=== PATIENT | female | born 1940 | race Caucasian/White ===

== ENCOUNTER 2017-03-03 06:49 | Day surgery (SDC) | payer OTHER ==
[2017-03-01 14:55] VITALS: BMI 29.9
--- NOTE | 2017-03-02 13:13 | HP ---
- Patient Scheduled date of Surgery: 03/03/17 Scheduled Surgical Procedure: Phacoemulsification and cataract extraction with PCIOL Affected Eye: Right Chief Complaint (Indication for surgery): Decreased vision affecting ADLs - Ocular History Other Eye History: Other (ptosis, aelksandr) Eye Medications: cipro Previous Eye Surgery: none - Medical History Illnesses: Hypertension, Hypercholesterolemia, Diabetes Current Medications: Ambulatory Orders Aspirin [Aspirin EC] 81 mg PO DAILY 03/01/17 Furosemide [Lasix] 40 mg PO DAILY 03/01/17 Losartan Potassium 50 mg PO DAILY 03/01/17 Metformin HCl 500 mg PO BID 03/01/17 Sertraline HCl [Zoloft] 100 mg PO HS 03/01/17 Allergies/Adverse Reactions: Allergies Allergy/AdvReac Type Severity Reaction Status Date / Time No Known Allergies Allergy Verified 03/01/17 14:58 Ocular Examination - Best Corrected Visual Acuity Distance: Right eye: 20/70 Distance: Left eye: 20/50 - External/Slit Lamp Examination Abnormalities: dermatochalasis, ptosis - Intraocular Pressure Intraocular Pressure - Right eye: 17 Intraocular Pressure-Left eye: 17 - Lens Lens: 2-3 + NS - Vitreous/Retina Vitreous/Retina: c:D 0.2 m/v/p wnl - Special Examination M - Right eye: -2.75-0.75 x 010 M - Left eye: -2.50-0.50 x 095 K - Right eye: 42.25/43 x 90 K - Left eye: 42.25/43 x 90 AL - Right eye: 23.80 AL - Left eye: 23.72 IOL bag: +20.5 d hoya 251 IOL sulcus: +19.5 d hoya 231 IOL AC: +17.5 d mta 4uo - Impression Impression: Cataract Right Eye - Plan Plan: Phacoemulsification and cataract extraction - IOL Right eye Post-hospital care will be provided in office on: 03/04/17
--- NOTE | 2017-03-02 13:44 | HP ---
History & Physical Update - History History: No Change - Physical Physical: No Change - Assessment Assessment: No Change - Plan Plan: No Change
[~2017-03-03 06:49] MED LIST: ACETAMINOPHEN 325 MG TABLET (FP) PO PRN
[2017-03-03 07:35] VITALS: TEMP 97.6
[2017-03-03] MEDS ORDERED: CIPROFLOXACIN 0.3% EYE DROPS 5 ML BOTTLE ONE (07:39)
[2017-03-03] MEDS ORDERED: TROPICAMIDE 1% OPHTH SOLN 15 ML BOTTLE ONE (07:39)
[2017-03-03] MEDS ORDERED: DICLOFENAC SODIUM 0.1% OPHTHALMIC 2.5ML BOTTLE ONE (07:39)
[2017-03-03] MEDS ORDERED: PHENYLEPHRINE 2.5% OPHTH SOLN 15 ML BOTTLE ONE (07:39)
[2017-03-03] MEDS: TROPICAMIDE 1% OPHTH SOLN 15 ML BOTTLE OP SCH ×2 (07:45→07:55)
[2017-03-03] MEDS: CIPROFLOXACIN HCL 0.3% OPHTH 2.5ML BOTTLE OP SCH ×2 (07:45→07:55)
[2017-03-03] MEDS: DICLOFENAC SODIUM 0.1% OPHTHALMIC 2.5ML BOTTLE OP SCH ×2 (07:45→07:55)
[2017-03-03] MEDS: PHENYLEPHRINE 2.5% OPHTH SOLN 15 ML BOTTLE OP SCH ×2 (07:45→07:55)
[2017-03-03] MEDS ORDERED: MIDAZOLAM HCL 2 MG/2 ML SINGLE DOSE VIAL ONE (08:47)
[2017-03-03] MEDS ORDERED: LIDOCAINE HCL 2% JELLY (5 ML/TUBE) TP ONE (08:53)
[2017-03-03] MEDS ORDERED: CHONDROITIN SU A/HYALUR SOD 1 KIT IO ONE (09:04)
[2017-03-03] MEDS ORDERED: BSS (NA/CA/MG/K) BALANCED SALT SOLUTION OPHTH SOLN 15 ML BOTTLE OD ONE (09:04)
[2017-03-03] MEDS ORDERED: LIDOCAINE HCL 1% PRESERVATIVE FREE - 30ML VIAL IO ONE (09:04)
[2017-03-03] MEDS ORDERED: EPINEPHrine/PF 1 MG/1 ML (1:1,000) AMPULE SQ ONE (09:07)
[2017-03-03] MEDS ORDERED: TOBRAMYCIN/DEXAMETHASONE OPHTH. OINTMENT 1 TUBE OD ONE (09:23)
--- NOTE | 2017-03-03 09:28 | OP ---
Ophthalmology Operative Note Pre-Operative Diagnosis: Cataract Affected Eye: Right Operation: Phacoemulsification and cataract extraction with PCIOL Findings: cataract right eye Post-Operative Diagnosis: Same as Pre-op Tabulating Machine Mechanic: None Anesthesiologist: Khushboo Davila Anesthesia: Topical Specimens Removed: none Estimated blood loss: none Drains & Tubes with Location: none Operative Report Dictated: Yes
[2017-03-03 10:49] VITALS: BP 150/72; PULSE 63
--- NOTE | 2017-03-05 18:21 | OP ---
DATE OF OPERATION: 03/03/2017 PREOPERATIVE DIAGNOSIS: Cataract, right eye. POSTOPERATIVE DIAGNOSIS: Cataract, right eye. PROCEDURE: Phacoemulsification and cataract extraction with insertion of posterior chamber intraocular lens, right eye. SURGEON: Eliane Garrido MD MGMT CONSULTANT: None. ANESTHESIA: Topical. ANESTHESIOLOGIST: Khushboo Davila MD OPERATIVE PROCEDURE: The patient received viscous lidocaine 1% gel and was brought to the operating room and gently sedated, prepped and draped in the usual sterile fashion so as to expose only the right eye. Ophthalmic Betadine was instilled into the inferior fornix, and the lashes were taped out of the surgical field. An eyelid speculum was placed into the right eye. A paracentesis was made in superior clear cornea at the limbus. Then, 0.5 mL of nonpreserved lidocaine 1% was injected into the eye, and viscoelastic material was instilled into the anterior chamber via the paracentesis. A 2.4-mm keratome was then used to create the main incision in temporal clear cornea at the limbus. A continuous curvilinear capsulorrhexis was performed using a cystotome and Utrata forceps. Hydrodissection of the lens cortex was performed using BSS on a cannula until the nucleus was noted to be freely rotating. The phacoemulsification tip was then inserted via the main wound and used to sculpt 2 perpendicular grooves into the lens nucleus. The nucleus was crackled into 4 quadrants. Each quadrant was lifted out of the capsule into the iris plane and individually phacoemulsified. The remaining cortical material was then aspirated using the irrigation and aspiration port. The capsular bag was inflated using Provisc, and a preloaded Hoya lens model 251, power +20.5 diopters was injected into the capsular bag and centered using a Sinskey hook. The residual viscoelastic material was removed from the anterior chamber using irrigation and aspiration. The wound edges were hydrated using BSS. The wound was tested for leakage and was found to be watertight. Therefore, TobraDex ointment was placed in the eye. The speculum was removed from the eye, and the eyelid was closed. A sterile dressing and shield were placed over the eye, and the patient was transferred to the recovery room in stable condition and told to follow up in 1 day. ELIANE GARRIDO M.D. [id number]
== END 2017-03-03 10:52 | disposition home or self-care (01) ==
LOC: JASU-SURG 06:49
PROVIDERS: ATTEND Ophthalmology
PROC: 08RJ3JZ Replacement of Right Lens with Synthetic Substitute, Percutaneous Approach (ICD-10-PCS; principal; 2017-03-03 08:30)
DX: H26.9 Unspecified cataract (principal)

== ENCOUNTER 2017-03-31 06:11 | Day surgery (SDC) | payer OTHER ==
[2017-03-29 12:00] VITALS: BMI 30.9
--- NOTE | 2017-03-30 15:39 | HP ---
- Patient Scheduled date of Surgery: 03/31/17 Scheduled Surgical Procedure: Phacoemulsification and cataract extraction with PCIOL Affected Eye: Left Chief Complaint (Indication for surgery): Decreased vision affecting ADLs - Ocular History Other Eye History: Other (aleksandr, ptosis) Eye Medications: cipro 0/4, ketorolac 0/4 Previous Eye Surgery: s/p ce/pciol OD - Medical History Illnesses: Hypertension, Hypercholesterolemia, Diabetes, Other (depression) Current Medications: Ambulatory Orders Aspirin [Aspirin EC] 81 mg PO DAILY 03/01/17 Furosemide [Lasix] 40 mg PO DAILY 03/01/17 Losartan Potassium 50 mg PO DAILY 03/01/17 Metformin HCl 500 mg PO BID 03/01/17 Sertraline HCl [Zoloft] 100 mg PO HS 03/01/17 Allergies/Adverse Reactions: Allergies Allergy/AdvReac Type Severity Reaction Status Date / Time No Known Allergies Allergy Verified 03/29/17 12:03 Ocular Examination - Best Corrected Visual Acuity Distance: Right eye: 20/25- Distance: Left eye: 20/50-2 - External/Slit Lamp Examination Abnormalities: dermatochalais - Intraocular Pressure Intraocular Pressure - Right eye: 12 Intraocular Pressure-Left eye: 17 - Lens Lens: 2-3+ ns - Vitreous/Retina Vitreous/Retina: c:d 0.2 m/v/p wnl - Special Examination M - Right eye: +0.50-1.00 x 005 M - Left eye: -2.75-0.75 x 010 K - Right eye: 42/43 x 95 K - Left eye: 42/43 x 100 AL - Right eye: 23.8 AL - Left eye: 23.72 IOL bag: +21.0 d hoya 251 IOL sulcus: +20.0 d hoya 231 IOL AC: +17.5 d mta 4uo - Impression Impression: Cataract Left Eye - Plan Plan: Phacoemulsification and cataract extraction - IOL Left eye Post-hospital care will be provided in office on: 04/01/17
--- NOTE | 2017-03-30 16:02 | HP ---
History & Physical Update - History History: No Change - Physical Physical: No Change - Assessment Assessment: No Change - Plan Plan: No Change
[~2017-03-31 06:11] MED LIST changes: +TOBRAMYCIN/DEXAMETHASONE OPHTH. OINTMENT 1 TUBE TP ONE
[2017-03-31 06:30] VITALS: TEMP 97.5
[2017-03-31] MEDS ORDERED: CIPROFLOXACIN 0.3% EYE DROPS 5 ML BOTTLE ONE (06:31)
[2017-03-31] MEDS ORDERED: DICLOFENAC SODIUM 0.1% OPHTHALMIC 2.5ML BOTTLE ONE (06:31)
[2017-03-31] MEDS: PHENYLEPHRINE 2.5% OPHTH SOLN 15 ML BOTTLE OP SCH ×3 (06:55→07:05)
[2017-03-31] MEDS: DICLOFENAC SODIUM 0.1% OPHTHALMIC 2.5ML BOTTLE OP SCH ×3 (06:55→07:05)
[2017-03-31] MEDS: TROPICAMIDE 1% OPHTH SOLN 15 ML BOTTLE OP SCH ×3 (06:55→07:05)
[2017-03-31] MEDS: CIPROFLOXACIN HCL 0.3% OPHTH 2.5ML BOTTLE OP SCH ×3 (06:55→07:05)
[2017-03-31] MEDS ORDERED: TOBRAMYCIN/DEXAMETHASONE OPHTH. OINTMENT 1 TUBE ONE (07:29)
[2017-03-31] MEDS ORDERED: EPINEPHrine/PF 1 MG/1 ML (1:1,000) AMPULE ONE (07:29)
[2017-03-31] MEDS ORDERED: TRYPAN BLUE 0.5 ML DISP.SYRIN ONE (07:29)
[2017-03-31] MEDS ORDERED: POVIDONE-IODINE 5% OPHTHALMIC PREP 30 ML SOLUTION ONE (07:29)
[2017-03-31] MEDS ORDERED: LIDOCAINE HCL 2% JELLY (5 ML/TUBE) ONE (07:29)
[2017-03-31] MEDS ORDERED: ACETYLCHOLINE 1:100 INTRA-OCUL 20 MG/2 ML KIT ONE (07:29)
[2017-03-31] MEDS ORDERED: BSS (NA/CA/MG/K) BALANCED SALT SOLUTION OPHTH SOLN 15 ML BOTTLE ONE (07:29)
[2017-03-31] MEDS ORDERED: LIDOCAINE HCL/PF 1% SDV 5ML VIAL ONE (07:29)
[2017-03-31] MEDS ORDERED: MIDAZOLAM HCL 2 MG/2 ML SINGLE DOSE VIAL ONE (07:31)
[2017-03-31] MEDS ORDERED: LIDOCAINE HCL 2% JELLY (5 ML/TUBE) TP ONE (07:35)
[2017-03-31] MEDS ORDERED: LIDOCAINE HCL 1% PRESERVATIVE FREE - 30ML VIAL IO ONE (07:57)
[2017-03-31] MEDS ORDERED: CHONDROITIN SU A/HYALUR SOD 1 KIT IO ONE (07:58)
--- NOTE | 2017-03-31 08:23 | OP ---
Ophthalmology Operative Note Pre-Operative Diagnosis: Cataract Affected Eye: Left Operation: Phacoemulsification and cataract extraction with PCIOL Findings: cataract left eye Post-Operative Diagnosis: Same as Pre-op Cattle Manager: None Anesthesiologist: Khushboo Davila Anesthesia: Topical Specimens Removed: none Estimated blood loss: none Operative Report Dictated: Yes
--- NOTE | 2017-03-31 09:10 | OP ---
DATE OF OPERATION: DATE OF DICTATION: 03/31/2017 PREOPERATIVE DIAGNOSIS: Cataract, left eye. POSTOPERATIVE DIAGNOSIS: Cataract, left eye. PROCEDURE: Phacoemulsification and cataract extraction with insertion of posterior chamber intraocular lens, left eye. SURGEON: Eliane Garrido MD EXTRUDING PRESS ADJUSTER: None. ANESTHESIA: Topical. ANESTHESIOLOGIST: Khushboo Davila MD OPERATIVE PROCEDURE: The patient received viscous lidocaine gel 1% in the holding area and then was brought to the operating room and lightly sedated and prepped and draped in the usual sterile fashion so as to expose only the left eye. Ophthalmic Betadine was instilled into the inferior fornix and lashes were taped out of the surgical field. An eyelid speculum was placed into the left eye. A paracentesis was made in inferior clear cornea at the limbus. Nonpreserved lidocaine 1%, 0.5 mL, was injected into the anterior chamber. Viscoelastic material was instilled into the anterior chamber via the paracentesis. A 2.4-mm keratome was then used to create the main incision in temporal clear cornea at the limbus. A continuous curvilinear capsulorrhexis was performed using a cystotome and Utrata forceps. Hydrodissection of the lens cortex was performed using BSS on a cannula until the nucleus was noted to be freely rotating. The phacoemulsification tip was inserted via the main wound and used to sculpt 2 perpendicular grooves into the lens nucleus. The nucleus was cracked into 4 quadrants. Each quadrant was lifted out of the capsule into the iris plane and individually phacoemulsified. The remaining cortical material was then aspirated using the irrigation and aspiration port. The capsular bag was inflated using Provisc and a preloaded Hoya lens model 251, power +21.0 diopters, was injected into the capsular bag and centered using a Sinskey hook. The residual viscoelastic material was removed from the anterior chamber using irrigation and aspiration. The wound edges were hydrated using BSS. The wound was tested for leakage. It was found to be watertight. TobraDex ointment was placed in the eye. The speculum was removed from the eye and the eyelid was closed. A sterile dressing and shield were placed over the eye and the patient was transferred to the recovery room in stable condition. Told to follow up in 1 day. ELIANE GARRIDO M.D. JO [id number]
[2017-03-31 09:20] VITALS: BP 138/67; PULSE 71
== END 2017-03-31 09:29 | disposition home or self-care (01) ==
LOC: JASU-SURG 06:11
PROVIDERS: ATTEND Ophthalmology
PROC: 08RK3JZ Replacement of Left Lens with Synthetic Substitute, Percutaneous Approach (ICD-10-PCS; principal; 2017-03-31 07:30)
DX: H26.9 Unspecified cataract (principal)